=== PATIENT | female | born 2005 | race Caucasian/White ===

== ENCOUNTER 2023-07-01 22:47 | Inpatient (IN) | payer BC ==
[~2023-07-01] VITALS: Ht 157.5 cm; Wt 72.2 kg
[2023-07-01] MEDS ORDERED: NS 1,000 ML IV ONE (23:00)
[2023-07-01 23:38] LABS: BASO # 0.1 10^3/uL (0.0-0.2); BASO % 0.5 % (0.0-1.0); EOS # 0.4 10^3/uL (0.0-0.5); HEMATOCRIT 40.8 % (36.0-47.0); HEMOGLOBIN 13.8 g/dl (12.0-15.5); LYMPH # 3.3 10^3/uL (1.5-5.0); LYMPH % 25.3 % (24.0-44.0); MEAN CORPUSCULAR HEMOGLOBIN 30.4 pg (27.0-33.0); MEAN CORPUSCULAR HGB CONC 33.8 g/dl (32.0-36.5); MEAN CORPUSCULAR VOLUME 89.9 fl (80.0-96.0); MONO # 0.8 10^3/uL (0.0-0.8); MONO % 6.5 % (2.0-8.0); NEUTROPHILS # 8.3 10^3/uL (1.5-8.5); NEUTROPHILS % 64.3 % (36.0-66.0); PLATELET COUNT, AUTOMATED 321 10^3/uL (150-450); RED BLOOD COUNT 4.54 10^6/uL (4.00-5.40); WHITE BLOOD COUNT 12.9 10^3/uL (4.0-10.0)
[2023-07-01 23:39] LABS: ABG BASE EXCESS 3.1 (-2.0-2.0); ABG HCO3 24.1 MMOL/L (22.0-26.0); ABG O2 SATURATION 98.8 % (95.0-99.0); ABG PARTIAL PRESSURE CO2 27.5 mmHg (35.0-45.0); ABG PARTIAL PRESSURE O2 113.8 mmHg (75.0-100.0); ABG STANDARD HCO3 27.2 MMOL/L. (22.0-26.0); ABG TOTAL CO2 24.9 MMOL/L (22.0-29.0)
[2023-07-01 23:53] LABS: ETHYL ALCOHOL (ETHANOL) < 0.003 % (0.000-0.010)
[2023-07-01 23:55] LABS: ACETAMINOPHEN LEVEL < 2.0 UG/ML (10.0-20.0); ALKALINE PHOSPHATASE 109 U/L (46-116); ALT/SGPT 25 U/L (7.0-40); AST/SGOT 21 U/L (<34); BILIRUBIN,DIRECT 0.3 MG/DL (<0.4); BILIRUBIN,TOTAL 0.8 MG/DL (0.3-1.2); BLOOD UREA NITROGEN 19 MG/DL (9-23); CALCIUM LEVEL 9.4 MG/DL (8.5-10.1); CARBON DIOXIDE LEVEL 24 MMOL/L (20-31); CHLORIDE LEVEL 106 MMOL/L (98-107); CPK CREATINE PHOSPHOKINASE 89 U/L (34-145); CREATININE FOR GFR 0.89 MG/DL (0.55-1.30); GLUCOSE, FASTING 92 MG/DL (60-100); POTASSIUM SERUM 3.6 MMOL/L (3.5-5.1); SALICYLATE LEVEL < 3.0 MG/DL (<30); SODIUM LEVEL 141 MMOL/L (136-145); TOTAL PROTEIN 7.1 G/DL (5.7-8.2)
[2023-07-02 00:13] LABS: HCG, SERUM QUALITATIVE NEGATIVE (NEGATIVE)
[2023-07-02 00:59] LABS: AMPHETAMINES LEVEL URINE NEGATIVE (NEGATIVE); BARBITURATES URINE NEGATIVE (NEGATIVE); BENZODIAZEPINES URINE NEGATIVE (NEGATIVE); CANNABINOIDS URINE NEGATIVE (NEGATIVE); COCAINE METABOLITE URINE NEGATIVE (NEGATIVE); METHADONE URINE NEGATIVE (NEGATIVE); OPIATES URINE NEGATIVE (NEGATIVE); PHENCYCLIDINE URINE NEGATIVE (NEGATIVE)
[2023-07-02] MEDS ORDERED: MED REC IN PROGRESS XX SCH (09:00)
[2023-07-02] MEDS ORDERED: HOME MED LIST COMPLETE! XX SCH (09:25)
[2023-07-02] MEDS ORDERED: IBUPROFEN 400MG TAB PO PRN (21:00)
[2023-07-02] MEDS ORDERED: ACETAMINOPHEN TAB 650MG DOSE (2X325MG) PO PRN (21:00)
[2023-07-02] MEDS ORDERED: MAALOX 30 ML SUSP *UDC PO PRN (21:00)
[2023-07-02] MEDS ORDERED: diphenhydrAMINE 25MG CAP PO PRN (21:00)
[2023-07-02] MEDS ORDERED: traZODone 50 MG TAB PO PRN (21:00)
[2023-07-02] MEDS ORDERED: MOM 30ML SUSPENSION UDC PO PRN (21:00)
[2023-07-02 23:42] VITALS: BP 112/57; TEMP 97.3; O2SAT 98
[2023-07-03 06:05] VITALS: BP 111/59; TEMP 97.5; O2SAT 97
[2023-07-03] MEDS ORDERED: DULoxetine 30MG CAPSULE (CYMBALTA) PO SCH (09:00)
[2023-07-03] MEDS ORDERED: CYMB1CAP5 PO (12:10)
[2023-07-03 18:59] VITALS: BP 122/74; TEMP 99; O2SAT 97
[2023-07-04 05:51] VITALS: BP 112/62; TEMP 97.7; O2SAT 98
== END 2023-07-04 08:05 | disposition home or self-care (01) | DRG 751 ==
LOC: M ED 22:47 → EDBD 22:47 → M ED INP 07-02 21:00 → M PSY 07-02 23:30
PROVIDERS: ADMIT Student in an Organized Health Care Education/Training Program; ATTEND Student in an Organized Health Care Education/Training Program
DX: F33.9 Major depressive disorder, recurrent, unspecified (principal); F43.0 Acute stress reaction; Z91.410 Personal history of adult physical and sexual abuse; G43.909 Migraine, unspecified, not intractable, without status migrainosus